=== PATIENT | male | born 1975 | race Caucasian/White ===

== ENCOUNTER 2020-11-30 14:45 | Emergency (ER) | payer OTHER ==
[2020-11-30 15:00] VITALS: BP 135/92; PULSE 74; TEMP 99.2; BMI 28.8
[2020-11-30] MEDS ORDERED: IBUPROFEN 400 MG TABLET (FP) PO ONE ×2 (15:08→15:11)
[2020-11-30] MEDS ORDERED: CYCLOBENZAPRINE HCL 10 MG TABLET (FP) PO ONE (15:14)
[2020-11-30] MEDS ORDERED: CYCLOBENZAPRINE HCL 10 MG TABLET (FP) ONE (15:16)
[2020-11-30] MEDS: CYCLOBENZAPRINE HCL 10 MG TABLET (FP) PO ONE ×2 (15:20→15:21)
== END 2020-11-30 16:10 | disposition home or self-care (01) ==
LOC: SUPCPDRO 14:45 → FER 14:45
DX: M54.5 Low back pain (principal)
CPT/HCPCS: 99284-25